=== PATIENT | male | born 1965 | race African-American/Black ===

== ENCOUNTER 2022-02-08 15:18 | Emergency (ER) | payer OTHER ==
[~2022-02-08 15:18] MED LIST: Iopamidol 370 76% 100 ML VIAL ONE
[2022-02-08] MEDS ORDERED: Ondansetron PF 4 MG/2 ML Vial ONE (16:19)
[2022-02-08] MEDS ORDERED: Morphine 4 MG/ML VIAL ONE (16:19)
[2022-02-08 17:07] LABS: #Basophils 0.1 thou/uL (0.0-0.2); #Lymphocytes 2.3 thou/uL (1.20-3.40); #Neutrophils 14.9 thou/uL (1.40-6.50); %Basophils 0.8 % (0.0-1.0); %Eosinophils 0.1 % (0.0-10.0); %Lymphocytes 12.4 % (21.0-51.0); %Monocytes 5.7 % (0.0-10.0); %Neutrophils 81.1 % (42.0-75.0); Hemoglobin 14.6 g/dL (14.0-18.0); Mean Corpuscular HGB CONC 32.2 g/dL (32.0-36.0); Mean Corpuscular Hemoglobin 28.7 pg (27.0-31.0); Mean Corpuscular Volume 89.4 fL (78.0-98.0); Mean Platelet Volume 12.9 fL (7.4-10.4); Platelet Count 196 thou/uL (130-400); RBC Distribution Width 12.3 % (11.5-14.5); Red Blood Cell (RBC) Count 5.09 mill/uL (4.70-6.10); White Blood Cell (WBC) Count 18.4 thou/uL (4.8-10.8)
[2022-02-08 17:15] LABS: Large Platelets SLIGHT; Platelet Morphology Comment Appears Adequate
[2022-02-08 17:18] LABS: ALT (SGPT) 51 U/L (8-55); AST (SGOT) 42 U/L (5-34); Albumin 3.8 g/dL (3.5-5.0); Alkaline Phosphatase 106 U/L (40-110); Anion Gap 15 mmol/L (10-20); BUN (Urea Nitrogen) 13 mg/dL (8.4-25.7); Bilirubin, Total 0.8 mg/dL (0.2-1.2); Calc. Creatinine Clearance 0 mL/min (70-130); Calcium 9.2 mg/dL (7.8-10.44); Carbon Dioxide 29 mmol/L (22-29); Chloride 96 mmol/L (98-107); Estimated GFR 58; Globulin 3.5 g/dL (2.4-3.5); Glucose 292 mg/dL (70-105); Lipase 55 U/L (8-78); Potassium 4.1 mmol/L (3.5-5.1); Protein, Total 7.3 g/dL (6.0-8.3); Sodium 136 mmol/L (136-145)
[2022-02-08] MEDS ORDERED: Orphenadrine Citrate 60 MG/2 ML VIAL ONE (18:01)
[2022-02-08] MEDS ORDERED: Ketorolac Tromethamine 30 MG/ML VIAL ONE (18:01)
[2022-02-08] MEDS ORDERED: Boostrix 0.5 ML (Tdap) VIAL ONE (18:02)
== END 2022-02-08 18:40 | disposition home or self-care (01) ==
LOC: MADERS 15:18
DX: S22.22XA Fracture of body of sternum, initial encounter for closed fracture (principal); E11.65 Type 2 diabetes mellitus with hyperglycemia; N17.9 Acute kidney failure, unspecified; I10 Essential (primary) hypertension; V43.53XA Car driver injured in collision with pick-up truck in traffic accident, initial encounter; W22.11XA Striking against or struck by driver side automobile airbag, initial encounter; Z23 Encounter for immunization; Z79.84 Long term (current) use of oral hypoglycemic drugs; Z79.899 Other long term (current) drug therapy
CPT/HCPCS: 36415; 70450; 71260; 72125; 74177; 80053; 83690; 84484; 85025; 90471; 90715; 93005; 94760; 96361; 96372; 96374; 96375; J1885; J2270; J2360; J2405; Q9967